=== PATIENT | female | born 1950 | race American Indian/Alaskan Native ===

== ENCOUNTER 2016-11-25 19:56 | Emergency (ER) | payer MEDICARE ==
[2016-11-25 20:39] VITALS: BP 171/74
[2016-11-25 21:06] LABS: Bilirubin,Urine NEG (Negative); Blood,Urine NEG (Negative); Ketones,Urine NEG (Negative); Leukocyte Esterase,Urine TR (Negative); Mucus,Urine FEW /HPF; Nitrite,Urine NEG (Negative)
== END 2016-11-26 00:48 | disposition left against medical advice (07) ==
LOC: ED 19:56
DX: R35.0 Frequency of micturition (principal); Z53.21 Procedure and treatment not carried out due to patient leaving prior to being seen by health care provider
CPT/HCPCS: 81001

== ENCOUNTER 2017-03-24 07:02 | Emergency (ER) | payer MEDICARE ==
[2017-03-24 08:24] LABS: Basophils # (Auto) 0.1 K/mm3 (0.0-0.1); Basophils % (Auto) 0.3 % (0.0-1.8); Eosinophils % (Auto) 0.1 % (0.0-4.3); Hematocrit 42.5 % (30.3-42.9); Hemoglobin 13.4 gm/dl (10.1-14.3); Lymphocytes # (Auto) 2.5 K/mm3 (1.2-5.4); Lymphocytes % (Auto) 14.5 % (13.4-35.0); Mean Corpuscular HGB Conc 31 % (30-34); Mean Corpuscular Volume 79 fl (79-97); Monocytes # (Auto) 1.2 K/mm3 (0.0-0.8); Monocytes % (Auto) 7.1 % (0.0-7.3); Platelet Count 283 K/mm3 (140-440); Red Blood Count 5.37 M/mm3 (3.65-5.03); Red Cell Distribution Width 15.3 % (13.2-15.2)
[2017-03-24 08:27] LABS: Mean Corpuscular Hemoglobin 25 pg (28-32)
[2017-03-24 08:45] LABS: Alanine Aminotransferase 13 units/L (7-56); Albumin 4.3 g/dL (3.9-5); BUN/Creatinine Ratio 33; Blood Urea Nitrogen 30 mg/dL (7-17); Calcium 8.8 mg/dL (8.4-10.2); Hemolysis Index 7
[2017-03-24 11:17] LABS: Bacteria,Urine 4+ /HPF (Negative); Bilirubin,Urine NEG (Negative); Blood,Urine MOD (Negative); Color,Urine Amber (Yellow); Mucus,Urine FEW /HPF; Nitrite,Urine NEG (Negative)
[2017-03-24] MEDS ORDERED: NACL 0.9% 1000 ML 1,000 ML IV ONE (12:24)
[2017-03-24] MEDS ORDERED: MORPHINE IV ONE (12:24)
[2017-03-24] MEDS ORDERED: ZOFRAN IV ONE (12:24)
--- NOTE | 2017-03-24 12:25 | Emergency Department Report ---
Chief Complaint: Abdominal Pain Stated Complaint: ABD PAIN - HPI History of Present Illness: 66 yo female with hx of DM presents with generalized abdominal pain since [place]. Recently started prednisone therapy. Elevated WBC noted. CT, IVF and meds ordered. - Exam Vital Signs: Vital Signs 03/24/17 03/24/17 03/24/17 07:31 12:13 12:19 Temperature 97.6 F 98.2 F Pulse Rate 80 Respiratory 20 Rate Blood Pressure 169/85 128/55 O2 Sat by Pulse 96 98 Oximetry MSE screening note: Focused history and physical exam performed. Due to findings the following was ordered: ED Medical Decision Making - Lab Data Result diagrams: 03/24/17 08:03 03/24/17 08:03 ED Disposition for MSE Condition: Stable Instructions: Abdominal Pain (ED) Referrals: WONG MONTENEGRO MD [Primary Care Provider] - 3-5 Days
--- NOTE | 2017-03-24 12:30 | Emergency Department Report ---
ED Abdominal Pain HPI - General Chief Complaint: Abdominal Pain Stated Complaint: ABD PAIN Time Seen by Provider: 03/24/17 12:26 Source: patient, family Mode of arrival: Ambulatory Limitations: No Limitations - History of Present Illness Initial Comments: 66 yo female with hx of DM presents with generalized abdominal pain since last night. Positive nausea vomiting and diarrhea. Patient had one episode of diarrhea and one episode of vomiting but she reports nausea since last night. Denies any urinary burning, vaginal bleeding or discharge. She said this started after she ate [employer] steak and fries. Blood sugar and triage is 268. Denies any back pain. Denies any chest pain or shortness of breath .Recently started prednisone therapy. Pain is 10 out of 10 and crampy .no medication taken for pain Elevated WBC noted. Past medical history of hypertension diabetes and arthritis with history of hysterectomy. MD Complaint: abdominal pain -: Last night Location: epigastric Radiation: none Migration to: no migration Severity: severe Severity scale (0 -10): 10 Quality: cramping Improves With: nothing Worsens With: nothing Context: possible food poisoning Associated Symptoms: nausea, vomiting, diarrhea. denies: fever, chills, constipation, dysuria, hematemesis, hematochezia, melena, hematuria, anorexia, syncope Treatments Prior to Arrival: other (none) - Related Data Home Medications Medication Instructions Recorded Confirmed Last Taken Valsartan [Diovan] 160 mg PO QDAY 01/06/16 01/06/16 01/05/16 glipiZIDE [Glucotrol] 10 mg PO QDAY 01/06/16 01/06/16 01/05/16 Previous Rx's Medication Instructions Recorded Last Taken Type Ciprofloxacin HCl [Ciprofloxacin 500 mg PO Q12H 10 Days #20 tab 03/24/17 Unknown Rx TAB] Dicyclomine [Bentyl] 20 mg PO Q8H PRN #12 tablet 03/24/17 Unknown Rx Ondansetron [Zofran Odt] 4 mg PO Q8H PRN #12 tab.rapdis 03/24/17 Unknown Rx traMADol [Ultram] 50 mg PO Q6HR PRN #12 tablet 03/24/17 Unknown Rx Allergies Allergy/AdvReac Type Severity Reaction Status Date / Time aspirin Allergy Hives Verified 08/25/13 15:51 ED Review of Systems ROS: Stated complaint: ABD PAIN Other details as noted in HPI Comment: All other systems reviewed and negative Constitutional: no symptoms reported Eyes: denies: eye pain, eye discharge ENT: denies: ear pain, throat pain Respiratory: no symptoms reported Cardiovascular: denies: chest pain, palpitations, dyspnea on exertion, edema, syncope, paroxysmal nocturnal dyspnea Gastrointestinal: abdominal pain, nausea, vomiting, diarrhea. denies: constipation, hematemesis, melena, hematochezia Genitourinary: denies: urgency, dysuria, frequency, hematuria, discharge, abnormal menses, dyspareunia Musculoskeletal: denies: back pain, joint swelling, arthralgia, myalgia Skin: denies: rash Neurological: denies: headache ED Past Medical Hx - Past Medical History Previous Medical History?: Yes Hx Hypertension: Yes Hx Diabetes: Yes - Surgical History Past Surgical History?: Yes Hx Breast Surgery: Yes (right breast biopsy) Additional Surgical History: right shoulder surgery. hysterectomy - Family History Family history: hypertension - Social History Smoking Status: Never Smoker Substance Use Type: None - Medications Home Medications: Home Medications Medication Instructions Recorded Confirmed Last Taken Type Valsartan [Diovan] 160 mg PO QDAY 01/06/16 01/06/16 01/05/16 History glipiZIDE [Glucotrol] 10 mg PO QDAY 01/06/16 01/06/16 01/05/16 History Ciprofloxacin HCl [Ciprofloxacin 500 mg PO Q12H 10 Days #20 tab 03/24/17 Unknown Rx TAB] Dicyclomine [Bentyl] 20 mg PO Q8H PRN #12 tablet 03/24/17 Unknown Rx Ondansetron [Zofran Odt] 4 mg PO Q8H PRN #12 tab.rapdis 03/24/17 Unknown Rx traMADol [Ultram] 50 mg PO Q6HR PRN #12 tablet 03/24/17 Unknown Rx ED Physical Exam - General Limitations: No Limitations General appearance: alert, in no apparent distress - Head Head exam: Present: atraumatic, normocephalic, normal inspection - Eye Eye exam: Present: normal appearance, PERRL, EOMI. Absent: periorbital swelling Pupils: Present: normal accommodation - ENT ENT exam: Present: normal exam, normal orophraynx, mucous membranes moist - Neck Neck exam: Present: normal inspection, full ROM, other (no C-spine tenderness). Absent: tenderness, meningismus, lymphadenopathy, thyromegaly - Respiratory Respiratory exam: Present: normal lung sounds bilaterally. Absent: respiratory distress - Cardiovascular Cardiovascular Exam: Present: regular rate, normal rhythm, normal heart sounds. Absent: systolic murmur, diastolic murmur - GI/Abdominal GI/Abdominal exam: Present: soft, normal bowel sounds. Absent: distended, tenderness, guarding, rebound, rigid, organomegaly, mass, bruit, pulsatile mass , hernia - Extremities Exam Extremities exam: Present: normal inspection, full ROM, normal capillary refill , other (no no clubbing, cyanosis or edema. +2 pulses all extremities and no neurovascular compromise). Absent: tenderness, pedal edema, joint swelling, calf tenderness - Back Exam Back exam: Present: normal inspection, full ROM, other (ambulates without any difficulties). Absent: tenderness, CVA tenderness (R), CVA tenderness (L), muscle spasm, paraspinal tenderness, vertebral tenderness, rash noted - Neurological Exam Neurological exam: Present: alert, oriented X3, normal gait, reflexes normal. Absent: motor sensory deficit - Psychiatric Psychiatric exam: Present: normal affect, normal mood - Skin Skin exam: Present: warm, dry, intact, normal color. Absent: rash ED Course Vital Signs 03/24/17 03/24/17 03/24/17 07:31 12:13 12:19 Temperature 97.6 F 98.2 F Pulse Rate 80 Respiratory 20 Rate Blood Pressure 169/85 128/55 O2 Sat by Pulse 96 98 Oximetry 03/24/17 12:37 Temperature Pulse Rate Respiratory 18 Rate Blood Pressure O2 Sat by Pulse Oximetry Vital Signs 03/24/17 03/24/17 03/24/17 07:31 12:13 12:19 Temperature 97.6 F 98.2 F Pulse Rate 80 Respiratory 20 Rate Blood Pressure 169/85 128/55 Blood Pressure [Right] O2 Sat by Pulse 96 98 Oximetry 03/24/17 03/24/17 12:37 15:17 Temperature 97.8 F Pulse Rate 78 Respiratory 18 14 Rate Blood Pressure Blood Pressure 146/59 [Right] O2 Sat by Pulse 98 Oximetry - Reevaluation(s) Reevaluation #1: 03/24/17 13:01 Patient received morphine 4 mg IV, Zofran 4 mg IV and started on IV fluid normal saline to receive 1 L. She is currently in CT scan. Reevaluation #2: 03/24/17 13:30 Patient and a stable from CT scan. She is tolerating oral liquids without any difficulties awaitig CT scan results. Reevaluation #3: 03/24/17 14:12 Patient stable on examination. Abdominal exam without any changes. Denies pain , nausea or vomiting. ED Medical Decision Making - Lab Data Result diagrams: 03/24/17 08:03 03/24/17 08:03 Lab Results 03/24/17 03/24/17 03/24/17 Range/Units 07:38 08:03 08:03 WBC 17.0 H (4.5-11.0) K/mm3 RBC 5.37 H (3.65-5.03) M/mm3 Hgb 13.4 (10.1-14.3) gm/dl Hct 42.5 (30.3-42.9) % MCV 79 (79-97) fl MCH 25 L (28-32) pg MCHC 31 (30-34) % RDW 15.3 H (13.2-15.2) % Plt Count 283 (140-440) K/mm3 Lymph % (Auto) 14.5 (13.4-35.0) % [place] % (Auto) 7.1 (0.0-7.3) % Eos % (Auto) 0.1 (0.0-4.3) % Baso % (Auto) 0.3 (0.0-1.8) % Lymph # 2.5 (1.2-5.4) K/mm3 Valencia # 1.2 H (0.0-0.8) K/mm3 Eos # 0.0 (0.0-0.4) K/mm3 Baso # 0.1 (0.0-0.1) K/mm3 Seg Neutrophils % 78.0 H (40.0-70.0) % Seg Neutrophils # 13.3 H (1.8-7.7) K/mm3 Sodium 140 (137-145) mmol/L Potassium 4.4 (3.6-5.0) mmol/L Chloride 100.0 (98-107) mmol/L Carbon Dioxide 24 (22-30) mmol/L Anion Gap 20 mmol/L BUN 30 H (7-17) mg/dL Creatinine 0.9 (0.7-1.2) mg/dL Estimated GFR > 60 ml/min BUN/Creatinine Ratio 33 % Glucose 242 H (65-100) mg/dL POC Glucose 268 H (70-105) Calcium 8.8 (8.4-10.2) mg/dL Total Bilirubin 0.40 (0.1-1.2) mg/dL AST 10 (5-40) units/L ALT 13 (7-56) units/L Alkaline Phosphatase 182 H (35-129) units/L Total Protein 7.8 (6.3-8.2) g/dL Albumin 4.3 (3.9-5) g/dL Albumin/Globulin Ratio 1.2 % Urine Color (Yellow) Urine Turbidity (Clear) Urine pH (5.0-7.0) Ur Specific Temple (1.003-1.030) Urine Protein (Negative) mg/dL Urine Glucose (UA) (Negative) mg/dL Urine Ketones (Negative) mg/dL Urine Blood (Negative) Urine Nitrite (Negative) Urine Bilirubin (Negative) Urine Urobilinogen (<2.0) mg/dL Ur Leukocyte Esterase (Negative) Urine WBC (Auto) (0.0-6.0) /HPF Urine RBC (Auto) (0.0-6.0) /HPF U Epithel Cells (Auto) (0-13.0) /HPF Urine Bacteria (Auto) (Negative) /HPF Ur Transition Epith Cell /HPF Urine Mucus /HPF 03/24/17 Range/Units 08:52 WBC (4.5-11.0) K/mm3 RBC (3.65-5.03) M/mm3 Hgb (10.1-14.3) gm/dl Hct (30.3-42.9) % MCV (79-97) fl MCH (28-32) pg MCHC (30-34) % RDW (13.2-15.2) % Plt Count (140-440) K/mm3 Lymph % (Auto) (13.4-35.0) % [place] % (Auto) (0.0-7.3) % Eos % (Auto) (0.0-4.3) % Baso % (Auto) (0.0-1.8) % Lymph # (1.2-5.4) K/mm3 [place] # (0.0-0.8) K/mm3 Eos # (0.0-0.4) K/mm3 Baso # (0.0-0.1) K/mm3 Seg Neutrophils % (40.0-70.0) % Seg Neutrophils # (1.8-7.7) K/mm3 Sodium (137-145) mmol/L Potassium (3.6-5.0) mmol/L Chloride (98-107) mmol/L Carbon Dioxide (22-30) mmol/L Anion Gap mmol/L BUN (7-17) mg/dL Creatinine (0.7-1.2) mg/dL Estimated GFR ml/min BUN/Creatinine Ratio % Glucose (65-100) mg/dL POC Glucose (70-105) Calcium (8.4-10.2) mg/dL Total Bilirubin (0.1-1.2) mg/dL AST (5-40) units/L ALT (7-56) units/L Alkaline Phosphatase (35-129) units/L Total Protein (6.3-8.2) g/dL Albumin (3.9-5) g/dL Albumin/Globulin Ratio % Urine Color Nadira (Yellow) Urine Turbidity Clear (Clear) Urine pH 5.0 (5.0-7.0) Ur Specific Temple 1.024 (1.003-1.030) Urine Protein 100 mg/dl (Negative) mg/dL Urine Glucose (UA) 50 (Negative) mg/dL Urine Ketones Neg (Negative) mg/dL Urine Blood Mod (Negative) Urine Nitrite Neg (Negative) Urine Bilirubin Neg (Negative) Urine Urobilinogen 2.0 (<2.0) mg/dL Ur Leukocyte Esterase Mod (Negative) Urine WBC (Auto) 55.0 H (0.0-6.0) /HPF Urine RBC (Auto) 20.0 (0.0-6.0) /HPF U Epithel Cells (Auto) 7.0 (0-13.0) /HPF Urine Bacteria (Auto) 4+ (Negative) /HPF Ur Transition Epith Cell 1 /HPF Urine Mucus Few /HPF Urine culture pending - Radiology Data Radiology results: report reviewed CT of the abdomen and pelvis with IV contrast revealed hepatic steatosis, slightly near scar versus atelectasis in the left lower base of lungs. Prominent fluid from cecum to rectum may reflect diarrhea. Patient positive diarrhea from gastroenteritis. She also has 11 mm nonspecific hyperdense left renal nodule may be hyperdense cysts. Differential includes solid nodule. Recommend follow-up renal ultrasound to further characterize. If unable to visualize ultrasound consider follow-up renal MRI with IV contrast. Nonspecific fat stranding is noted in the central right abdomen mesenteric fat. No adjacent adenopathy . This could reflect slight scarring. Patient has history of hysterectomy. The differential included mild edema or slight mesenteritis. Slight free fluid adjacent to the liver in the pelvic cul-de- sac. Also in both pericolic gutter may be reactive. - Medical Decision Making Patient here complaining of upper abdominal pain found to have urinary tract infection and possible mesenteritis per CT scan of the abdomen and pelvis with IV contrast. Patient also has renal cyst versus nodule. Patient doesn't have a primary care physician who is Dr. Manzo that does not come to this hospital. I gave patient's ED and report on CT scan of the abdomen and pelvis to follow up with primary care physician and he'll refer her to appropriate specialists for follow-up ultrasound of the kidney. Patient with urinary tract infection. CBC reflects elevation in his white count at 17 with slight shift into the left. BMP is stable except she has elevation in glucose at 262 and alkaline phosphate with elevation. Urinalysis positive for UTI. Please refer to radiology and laboratory section for details on lab and CT scan. Her abdominal pain and nausea with diarrhea and vomiting has resolved. She is nontender to palpate in her abdomen. Patient voiced understanding of discharge instruction and treatment plan. Patient was given 1 L of normal saline IV, Zofran 4 mg IV and morphine 4 mg IV and she voiced relief of pain. Patient will be discharged home on Ultram, ciprofloxacin and Zofran. Critical care attestation.: If time is entered above; I have spent that time in minutes in the direct care of this critically ill patient, excluding procedure time. ED Disposition Clinical Impression: Cystitis without hematuria, Nausea vomiting and diarrhea, Abnormal CT of the abdomen, Hepatic steatosis Abdominal pain Qualifiers: Abdominal location: upper abdomen, unspecified Qualified Code(s): R10.10 - Upper abdominal pain, unspecified Leukocytosis Qualifiers: Leukocytosis type: unspecified Qualified Code(s): D72.829 - Elevated white blood cell count, unspecified Disposition: DC-01 TO HOME OR SELFCARE Is pt being admited?: No Does the pt Need Aspirin: No Condition: Stable Instructions: Abdominal Pain (ED), Acute Nausea and Vomiting (ED), Urinary Tract Infection in Women (ED), Gastroenteritis (ED), Non-Alcoholic Fatty Liver Disease (ED) Additional Instructions: Please follow-up with your primary care physician in 2-3 days Take medication as prescribed Increasing fluid intake The referrals for urology and gastroenterology Prescriptions: Ciprofloxacin HCl [Ciprofloxacin TAB] 500 mg PO Q12H 10 Days #20 tab Dicyclomine [Bentyl] 20 mg PO Q8H PRN #12 tablet PRN Reason: Nausea And Vomiting Ondansetron [Zofran Odt] 4 mg PO Q8H PRN #12 tab.rapdis PRN Reason: Nausea And Vomiting traMADol [Ultram] 50 mg PO Q6HR PRN #12 tablet PRN Reason: Pain Referrals: WONG MANZO MD [Primary Care Provider] - 03/28/17 Forms: Work/School Release Form(ED)
--- NOTE | 2017-03-24 14:25 | Cat Scan Report ---
FINAL REPORT EXAM: CT ABDOMEN PELVIS W CON HISTORY: abdominal pain TECHNIQUE: CT examination of the ABDOMEN after IV contrast CT examination of the PELVIS after IV contrast PRIORS: None. FINDINGS: Large body habitus limits the examination. Increased soft tissue attenuates the CT x-ray beam and degrades image quality. Slight linear scar versus atelectasis in left lower lobe base. Nonspecific diffusely decreased density of liver parenchyma may reflect fatty infiltration. No visualized focal liver lesion. Slight focal fatty sparing adjacent to the gallbladder fossa. Normal-appearing gallbladder, adrenals, pancreas, and spleen. Intact normal caliber abdominal aorta and IVC. Nonspecific trace free fluid is noted adjacent to the liver and in the right pericolic gutter, left pericolic gutter. This may be reactive. Bilateral renal cysts. One exophytic nodule in the left renal mid pole laterally measures 11 mm and is hyperdense. This may be a hyperdense cyst. Differential includes solid nodule. Nonspecific slight fat stranding in the central right abdominal mesentery. No adjacent adenopathy or other abnormality. Normal-appearing stomach and duodenum. No renal calculus or hydronephrosis. No calculus or distention in the visible ureteral segments. Intact abdominal wall. No retroperitoneal adenopathy or evidence of mesenteric mass. No small bowel distention in the abdomen and pelvis. Slight pelvic free fluid may be reactive. Normal-appearing urinary bladder. Uterus not visible. No adnexal abnormality. Nonspecific prominence of fluid from cecum to rectum may reflect diarrhea. No gross ascites, free air, or colonic distention. Normal-appearing cecum, terminal ileum, and appendix. IMPRESSION: 11 mm nonspecific hyperdense left renal nodule may be a hyperdense cyst. Differential includes solid nodule. Recommend follow-up renal ultrasound to further characterize. If unable to visualize with ultrasound, consider followup renal MRI, with IV contrast if possible. Nonspecific slight fat stranding is noted in the central right abdominal mesenteric fat. No adjacent adenopathy. This could reflect slight scarring. The differential includes mild edema or slight mesenteritis. Slight free fluid adjacent to the liver, in the pelvis cul-de-sac, and in both pericolic gutters may be reactive. Hepatic steatosis Slight linear scar versus atelectasis in left lower lobe base Prominent fluid from cecum to rectum may reflect diarrhea
[2017-03-24] MEDS ORDERED: cefTRIAXone 1 GM in NACL 0.9% 20 ML IV ONE (15:14)
[2017-03-24 15:19] VITALS: BP 146/59
== END 2017-03-24 15:37 | disposition home or self-care (01) ==
LOC: ED 07:02
DX: N30.90 Cystitis, unspecified without hematuria (principal); K76.0 Fatty (change of) liver, not elsewhere classified; R93.5 Abnormal findings on diagnostic imaging of other abdominal regions, including retroperitoneum; D72.829 Elevated white blood cell count, unspecified; R10.10 Upper abdominal pain, unspecified; I10 Essential (primary) hypertension; E11.9 Type 2 diabetes mellitus without complications
CPT/HCPCS: 36415; 74177; 80053; 81001; 82962; 85025; 87086; 96361; 96365; 96375; 99284; J0696; J2270; J2405; J7030; Q9967

== ENCOUNTER 2020-01-03 11:03 | Outpatient (CLI) | payer MEDICARE ==
--- NOTE | 2020-01-03 13:26 | Nuclear Medicine Report ---
CHEST 1 VIEW INDICATION: SHORTNESS OF BREATH. COMPARISON: None FINDINGS: Support devices: None. Heart: Within normal limits. Lungs/Pleura: No acute air space or interstitial disease. Additional findings: None. IMPRESSION: No acute findings. PERFUSION PULMONARY SCINTIGRAPHY HISTORY: Shortness of breath COMPARISON: 01/03/2020 chest radiograph. TECHNIQUE: Radiopharmaceutical was inhaled. Tc-99m-MAA was then injected. Perfusion images were acqu ired. RADIOPHARMACEUTICAL: 5.2 mCi of Tc-99m-MAA injected FINDINGS: PERFUSION: No significant segmental or non-segmental defect. Additional Findings: None. IMPRESSION: 1. Low probability for pulmonary embolism. Signer Name: Markos Salazar Jr, MD Signed: 01/03/2020 1:21 PM Workstation Name: [id number]
--- NOTE | 2020-01-03 14:53 | Vascular Lab Report ---
DUPLEX DOPPLER LOWER EXTREMITY VEINS, BILATERAL INDICATION: SHORTNESS OF BREATH. TECHNIQUE: Duplex doppler imaging was performed through the veins of both lower extremities using ve nous compression and other maneuvers. COMPARISON: No relevant prior imaging study available. FINDINGS: Right Common femoral vein: Negative. Right Superficial femoral vein: Negative. Right Popliteal vein: Negative. Right Calf veins: Negative. Left Common femoral vein: Negative. Left Superficial femoral vein: Negative. Left Popliteal vein: Negative. Left Calf veins: Negative. Additional findings: None. IMPRESSION: No sonographic evidence for DVT in either lower extremity. Signer Name: Markos Salazar Jr, MD Signed: 01/03/2020 2:48 PM Workstation Name: [id number]
== END 2020-01-03 11:04 | disposition home or self-care (01) ==
LOC: VAS 11:03
PROVIDERS: ATTEND Internal Medicine
DX: R06.02 Shortness of breath (principal)
CPT/HCPCS: 71045; 78580; 93970; A9540